=== PATIENT | female | born 1945 | race Caucasian/White ===

== ENCOUNTER → 2017-10-13 09:58 | Outpatient (CLI) | payer OTHER, SELFPAY ==
[2017-10-13 10:38] LABS: Glucose Urine UA Negative (Normal); Nitrite Urine UA Negative (Negative); Occult Blood Urine UA 3+ (Negative); Protein Urine UA Negative (Negative); Urobilinogen Urine UA 0.2 mg/dL (Normal)
[2017-10-13 10:44] LABS: Add Manual Diff / Slide Review NO; Basophils Percent Auto 0.6 % (0-2); Eosinophils Percent Auto 1.7 % (2-4); Hemoglobin 11.5 g/dL (12.0-16.0); Lymphocytes Percent Auto 22.6 % (25-40); Mean Corpuscular HGB Conc 32.9 % (30-36); Mean Corpuscular Hemoglobin 28.6 PG (26-34); Mean Corpuscular Volume 86.7 fL (80-100); Monocytes Percent Auto 7.2 % (3-14); Neutrophils Absolute Auto 6800 /uL (3000-5900); Neutrophils Percent Auto 67.9 % (50-75); Platelet Count 254 X10^3/uL (150-400); Red Blood Cell Count 4.03 X10^6/uL (4.0-5.2); Red Cell Distribution Width 13.1 % (11.6-14.8); White Blood Cell Count 10.1 X10^3/uL (4.5-11.0)
[2017-10-13 10:45] LABS: Bilirubin Urine UA Negative (Negative); Ketones Urine UA Negative (Negative); Leukocyte Esterase Urine UA Negative (Negative)
[2017-10-13 10:46] LABS: Appearance Urine UA Clear; Color Urine UA Yellow
[2017-10-13 10:47] LABS: Culture Indicated Urine Cult Not Indicated; RBC Urine 1-5/HPF (0-5/HPF)
[2017-10-13 10:51] LABS: Alanine Aminotransferase 20 IU/L (9-52); Albumin 4.6 g/dL (3.5-5.0); Albumin Globulin Ratio 1.5 (1.0-2.8); Alkaline Phosphatase 54 U/L (38-126); Aspartate Aminotransferase 22 IU/L (14-36); BUN Creatinine Ratio 26.7 (6-22); Bilirubin Total 0.4 mg/dL (0.2-1.3); Calcium 9.8 mg/dL (8.4-10.2); Estimated Glomerular Filt Rate > 60.0 mL/min (>60); Glucose 130 mg/dL (80-110); HEMOLYSIS < 15 (0-50); Potassium 4.1 mmol/L (3.4-5.1); Sodium 140 mmol/L (137-145); Total Protein 7.6 g/dL (6.3-8.2)
[2017-10-13 10:52] LABS: C-Reactive Protein Quant < 0.5 mg/dL (<1.0)
[2017-10-13 11:18] LABS: Erythrocyte Sedimentation Rate 35 MM/HR (0-20)
== END ==
PROVIDERS: PCP Family Medicine; Visit Provider Family Medicine
DX: M35.3 Polymyalgia rheumatica (principal); K90.0 Celiac disease; R73.9 Hyperglycemia, unspecified; E11.9 Type 2 diabetes mellitus without complications
CPT/HCPCS: 36415; 80053; 81001; 81015; 85025; 85651; 86140

== ENCOUNTER → 2017-11-02 09:58 | Outpatient (CLI) | payer OTHER, SELFPAY ==
[2017-11-02 10:45] LABS: Add Manual Diff / Slide Review NO; Basophils Percent Auto 0.6 % (0-2); Eosinophils Percent Auto 1.8 % (2-4); Hemoglobin 11.4 g/dL (12.0-16.0); Lymphocytes Percent Auto 27.2 % (25-40); Mean Corpuscular HGB Conc 34.4 % (30-36); Mean Corpuscular Hemoglobin 29.2 PG (26-34); Mean Corpuscular Volume 85.1 fL (80-100); Monocytes Percent Auto 7.2 % (3-14); Neutrophils Absolute Auto 4700 /uL (3000-5900); Neutrophils Percent Auto 63.2 % (50-75); Platelet Count 267 X10^3/uL (150-400); Red Blood Cell Count 3.88 X10^6/uL (4.0-5.2); Red Cell Distribution Width 13.3 % (11.6-14.8); White Blood Cell Count 7.5 X10^3/uL (4.5-11.0)
[2017-11-02 10:59] LABS: Erythrocyte Sedimentation Rate 28 MM/HR (0-20)
[2017-11-02 11:01] LABS: Hemoglobin A1C% w Est Avg Glu 6.8 % (4.0-6.0)
[2017-11-02 11:11] LABS: HEMOLYSIS < 15 (0-50); Potassium 4.3 mmol/L (3.4-5.1); Sodium 141 mmol/L (137-145)
[2017-11-02 11:31] LABS: Alanine Aminotransferase 31 IU/L (9-52); Albumin 4.3 g/dL (3.5-5.0); Albumin Globulin Ratio 1.4 (1.0-2.8); Alkaline Phosphatase 65 U/L (38-126); Aspartate Aminotransferase 22 IU/L (14-36); BUN Creatinine Ratio 22.2 (6-22); Bilirubin Total 0.4 mg/dL (0.2-1.3); Calcium 9.6 mg/dL (8.4-10.2); Estimated Glomerular Filt Rate > 60.0 mL/min (>60); Globulin 3.1 g/dL (1.7-4.1); Glucose 116 mg/dL (80-110); Total Protein 7.4 g/dL (6.3-8.2)
[2017-11-02 11:37] LABS: C-Reactive Protein Quant < 0.5 mg/dL (<1.0)
== END ==
PROVIDERS: PCP Family Medicine; Visit Provider Family Medicine
DX: K90.0 Celiac disease (principal); M35.3 Polymyalgia rheumatica; R73.9 Hyperglycemia, unspecified; E11.9 Type 2 diabetes mellitus without complications
CPT/HCPCS: 36415; 80053; 82565; 83036; 84520; 85025; 85651; 86140

== ENCOUNTER → 2018-02-01 10:39 | Outpatient (CLI) | payer OTHER, SELFPAY ==
[2018-02-01 11:37] LABS: Appearance Urine UA CLEAR; Bilirubin Urine UA NEGATIVE (NEGATIVE); Color Urine UA YELLOW; Glucose Urine UA TRACE g/dL (Normal); Ketones Urine UA NEGATIVE (NEGATIVE); Leukocyte Esterase Urine UA 1+ (NEGATIVE); Nitrite Urine UA Negative (Negative); Occult Blood Urine UA 3+ (Negative); Protein Urine UA NEGATIVE (Negative); Specific Gravity Urine UA <=1.005 (1.000-1.035); Urobilinogen Urine UA 0.2 E.U./dL (0.2)
[2018-02-01 11:39] LABS: Bacteria Urine None Seen
[2018-02-01 11:44] LABS: Culture Indicated Urine Specimen Cultured; RBC Urine 5-10/HPF (0-5/HPF); Squamous Epithelial Cell Urine 0-1 /HPF; WBC Urine 10-30/HPF (0-5/HPF)
== END ==
PROVIDERS: PCP Family Medicine; Visit Provider Family Medicine
DX: R30.0 Dysuria (principal)
CPT/HCPCS: 81003; 81015; 87086; 87186

== ENCOUNTER → 2018-02-06 09:11 | Outpatient (CLI) | payer OTHER, SELFPAY ==
[2018-02-06 10:22] LABS: Glucose 118 mg/dL (80-110)
[2018-02-06 10:26] LABS: Hemoglobin A1C% w Est Avg Glu 6.8 % (4.0-6.0)
== END ==
PROVIDERS: PCP Family Medicine; Visit Provider Family Medicine
DX: E11.9 Type 2 diabetes mellitus without complications (principal)
CPT/HCPCS: 36415; 82947; 83036

== ENCOUNTER → 2018-03-23 11:07 | Outpatient (CLI) | payer OTHER, SELFPAY ==
[2018-03-23 11:53] LABS: Appearance Urine UA SL CLOUDY; Bilirubin Urine UA NEGATIVE (NEGATIVE); Color Urine UA YELLOW; Glucose Urine UA TRACE g/dL (Normal); Ketones Urine UA NEGATIVE (NEGATIVE); Leukocyte Esterase Urine UA 2+ (NEGATIVE); Nitrite Urine UA Negative (Negative); Occult Blood Urine UA 3+ (Negative); Protein Urine UA NEGATIVE (Negative); Specific Gravity Urine UA <=1.005 (1.000-1.035); Urobilinogen Urine UA 0.2 E.U./dL (0.2); pH Urine UA 6.5 (4.5-8.0)
[2018-03-23 12:18] LABS: Bacteria Urine Few (2-10); Culture Indicated Urine Specimen Cultured; RBC Urine 1-5/HPF (0-5/HPF); Squamous Epithelial Cell Urine 1-5 /HPF; WBC Urine 10-30/HPF (0-5/HPF)
== END ==
PROVIDERS: PCP Family Medicine; Visit Provider Family Medicine
DX: R30.0 Dysuria (principal)
CPT/HCPCS: 81003; 81015; 87077; 87086; 87186

== ENCOUNTER → 2018-04-09 13:49 | Outpatient (CLI) | payer OTHER, SELFPAY ==
[2018-04-09 14:40] LABS: Appearance Urine UA SL CLOUDY; Bilirubin Urine UA NEGATIVE (NEGATIVE); Color Urine UA YELLOW; Glucose Urine UA NEGATIVE (Normal); Ketones Urine UA NEGATIVE (NEGATIVE); Leukocyte Esterase Urine UA 1+ (NEGATIVE); Nitrite Urine UA POSITIVE (Negative); Occult Blood Urine UA 3+ (Negative); Protein Urine UA NEGATIVE (Negative); Urobilinogen Urine UA 0.2 E.U./dL (0.2)
[2018-04-09 14:49] LABS: RBC Urine 5-10/HPF (0-5/HPF); WBC Urine 30-100/HPF (0-5/HPF)
[2018-04-09 14:50] LABS: Bacteria Urine Many (>30); Culture Indicated Urine Specimen Cultured; Squamous Epithelial Cell Urine 1-5 /HPF
== END ==
PROVIDERS: PCP Family Medicine; Visit Provider Family Medicine
DX: R30.0 Dysuria (principal)
CPT/HCPCS: 81001; 87077; 87086; 87186

== ENCOUNTER → 2018-05-05 14:35 | Outpatient (CLI) | payer OTHER, SELFPAY | PROVIDERS: PCP Family Medicine; Visit Provider Family Medicine | DX: E11.9 Type 2 diabetes mellitus without complications (principal); M35.3 Polymyalgia rheumatica; K90.0 Celiac disease; R73.9 Hyperglycemia, unspecified ==

== ENCOUNTER → 2018-05-07 07:27 | Outpatient (CLI) | payer OTHER, SELFPAY ==
[2018-05-07 07:34] LABS: Bacteria Urine None Seen; RBC Urine None Seen (0-5/HPF); WBC Urine None Seen (0-5/HPF)
[2018-05-07 08:41] LABS: Add Manual Diff / Slide Review NO; Basophils Percent Auto 0.5 % (0-2); Bilirubin Urine UA NEGATIVE (NEGATIVE); Color Urine UA YELLOW; Eosinophils Percent Auto 3.2 % (2-4); Glucose Urine UA NEGATIVE (Normal); Hematocrit 33.8 % (36-46); Ketones Urine UA NEGATIVE (NEGATIVE); Leukocyte Esterase Urine UA NEGATIVE (NEGATIVE); Lymphocytes Percent Auto 31.2 % (25-40); Mean Corpuscular HGB Conc 32.5 % (30-36); Mean Corpuscular Hemoglobin 28.5 PG (26-34); Mean Corpuscular Volume 87.9 fL (80-100); Monocytes Percent Auto 8.3 % (3-14); Neutrophils Absolute Auto 3500 /uL (3000-5900); Neutrophils Percent Auto 56.8 % (50-75); Nitrite Urine UA NEGATIVE (Negative); Occult Blood Urine UA 3+ (Negative); Platelet Count 271 X10^3/uL (150-400); Protein Urine UA NEGATIVE (Negative); Red Blood Cell Count 3.85 X10^6/uL (4.0-5.2); Red Cell Distribution Width 14.5 % (11.6-14.8); Specific Gravity Urine UA 1.015 (1.000-1.035); Urobilinogen Urine UA 0.2 E.U./dL (0.2); White Blood Cell Count 6.1 X10^3/uL (4.5-11.0)
[2018-05-07 08:58] LABS: Alanine Aminotransferase 18 IU/L (9-52); Albumin 4.5 g/dL (3.5-5.0); Albumin Globulin Ratio 1.6 (1.0-2.8); Alkaline Phosphatase 55 U/L (38-126); Aspartate Aminotransferase 22 IU/L (14-36); Bilirubin Total 0.2 mg/dL (0.2-1.3); Blood Urea Nitrogen 27 mg/dL (7-17); Calcium 9.9 mg/dL (8.4-10.2); Carbon Dioxide 27 mmol/L (22-32); Chloride 102 mmol/L (98-107); Estimated Glomerular Filt Rate > 60.0 mL/min (>60); Globulin 2.9 g/dL (1.7-4.1); Glucose 127 mg/dL (80-110); HEMOLYSIS < 15 (0-50); Potassium 4.4 mmol/L (3.4-5.1); Sodium 143 mmol/L (137-145); Total Protein 7.4 g/dL (6.3-8.2)
[2018-05-07 08:59] LABS: C-Reactive Protein Quant < 0.5 mg/dL (<1.0)
[2018-05-07 09:00] LABS: Appearance Urine UA Clear; Granular Casts Urine 0-1/LPF; Squamous Epithelial Cell Urine 1-5 /HPF
[2018-05-07 09:06] LABS: Erythrocyte Sedimentation Rate 22 MM/HR (0-20)
[2018-05-07 09:49] LABS: Hemoglobin A1C% w Est Avg Glu 6.7 % (4.0-6.0)
== END ==
PROVIDERS: PCP Family Medicine; Visit Provider Family Medicine
DX: E11.9 Type 2 diabetes mellitus without complications (principal); M35.3 Polymyalgia rheumatica; K90.0 Celiac disease; R73.9 Hyperglycemia, unspecified
CPT/HCPCS: 36415; 80053; 81001; 82565; 83036; 84520; 85025; 85651; 86140

== ENCOUNTER → 2018-06-28 14:14 | Outpatient (CLI) | payer OTHER, SELFPAY ==
[2018-06-28 15:16] LABS: Bilirubin Urine UA NEGATIVE (NEGATIVE); Color Urine UA YELLOW; Glucose Urine UA NEGATIVE (Negative); Ketones Urine UA NEGATIVE (NEGATIVE); Leukocyte Esterase Urine UA 2+ (NEGATIVE); Nitrite Urine UA NEGATIVE (Negative); Occult Blood Urine UA 2+ (Negative); Protein Urine UA NEGATIVE (Negative); Specific Gravity Urine UA <=1.005 (1.000-1.035); Urobilinogen Urine UA 0.2 E.U./dL (0.2); pH Urine UA 6.5 (4.5-8.0)
[2018-06-28 15:19] LABS: Appearance Urine UA Slightly Cloudy
[2018-06-28 15:29] LABS: Amorphous Sediment Urine 1+; Bacteria Urine Moderate (10-30); Culture Indicated Urine Specimen Cultured; Mucus Urine 1+ (Negative); RBC Urine 1-5/HPF (0-5/HPF); Squamous Epithelial Cell Urine 0-1 /HPF; WBC Urine 30-100/HPF (0-5/HPF)
== END ==
PROVIDERS: PCP Family Medicine; Visit Provider Family Medicine
DX: R30.0 Dysuria (principal)
CPT/HCPCS: 81003; 81015; 87077; 87086; 87186

== ENCOUNTER → 2018-09-07 11:01 | Outpatient (CLI) | payer OTHER, SELFPAY ==
[2018-09-07 13:00] LABS: Appearance Urine UA CLEAR; Bilirubin Urine UA NEGATIVE (NEGATIVE); Color Urine UA YELLOW; Glucose Urine UA TRACE g/dL (Negative); Ketones Urine UA NEGATIVE (NEGATIVE); Leukocyte Esterase Urine UA TRACE (NEGATIVE); Nitrite Urine UA NEGATIVE (Negative); Occult Blood Urine UA 3+ (Negative); Protein Urine UA NEGATIVE (Negative); Specific Gravity Urine UA 1.015 (1.000-1.035); Urobilinogen Urine UA 0.2 E.U./dL (0.2)
[2018-09-07 13:21] LABS: Amorphous Sediment Urine 1+; Bacteria Urine Many (>30); Culture Indicated Urine Specimen Cultured; RBC Urine 1-5/HPF (0-5/HPF); Squamous Epithelial Cell Urine 0-1 /HPF; WBC Urine 5-10/HPF (0-5/HPF)
== END ==
PROVIDERS: PCP Family Medicine; Visit Provider Family Medicine
DX: R30.0 Dysuria (principal)
CPT/HCPCS: 81001; 87077; 87086; 87186

== ENCOUNTER → 2018-10-25 07:00 | Outpatient (CLI) | payer OTHER, SELFPAY ==
[2018-10-25 09:45] LABS: Hemoglobin A1C% w Est Avg Glu 6.5 % (4.0-6.0)
[2018-10-25 11:27] LABS: Creatinine Urine Random 36.9 mg/dL; Microalbumi Creatinin Ratio Ur 16.2 ug/mg CR (<30); Microalbumin Urine Random < 0.6 mg/dL (0-1.6)
== END ==
PROVIDERS: PCP Family Medicine; Visit Provider Family Medicine
DX: E11.9 Type 2 diabetes mellitus without complications (principal)
CPT/HCPCS: 36415; 82043; 82570; 83036

== ENCOUNTER 2018-12-11 21:13 | Emergency (ER) | payer OTHER, SELFPAY ==
[2018-12-11 21:20] VITALS: BP 213/88; PULSE 88; RESP 20; TEMP 36.6; O2SAT 99; BMI 22.4
--- NOTE | 2018-12-11 21:23 | DI.RAD.S_ITS ---
PROCEDURE: XR FOREARM RT 2V INDICATIONS: Fall TECHNIQUE: 2 views of the forearm were acquired. COMPARISON: [facility], CR, XR WRIST RT MIN 3V, 12/11/2018, 21:39. FINDINGS: Bones: No dislocations. No suspicious bony lesions. The forearm evaluation includes visualization of this area, and the straight AP projection shows a morphologic distortion of the scaphoid at approximately the junction of the middle and distal thirds. This same area was included on the dedicated scaphoid a plain film image from the wrist evaluation earlier today and no definite fracture was seen in that area. Regardless, this raises a high degree of concern that a previously hidden fracture is present at that site. Soft tissues: No suspicious soft tissue calcifications or masses. IMPRESSION: The wrist plain films from earlier today showed no fracture at the scaphoid. The current scaphoid visualization shows a highly suspicious appearance of fracture at the junction of the middle and distal thirds of the scaphoid. Due to the significant clinical implications of this finding followup dedicated advanced imaging is recommended. MR scanning provides the most accurate assessment for hidden fractures. Splinting and elective followup may be warranted based on this appearance. Dictated by: Beto Salamanca M.D. on 12/11/2018 at 21:46 Approved by: Beto Salamanca M.D. on 12/11/2018 at 21:50
--- NOTE | 2018-12-11 21:24 | DI.RAD.S_ITS ---
PROCEDURE: XR WRIST RT MIN 3V INDICATIONS: Fall TECHNIQUE: 4 views of the wrist were acquired. COMPARISON: [facility], CR, XR FOREARM RT 2V, 12/11/2018, 21:36. FINDINGS: Bones: No fractures or dislocations, however the forearm plain film imaging shows a finding highly suggestive of scaphoid fracture at the junction the middle and distal thirds. No suspicious bony lesions. Scaphoid view: A normal appearing scaphoid single view is present. However, please refer to the dedicated forearm plain films that include straight AP projection showing what appears to be a fracture at the scaphoid. Soft tissues: No suspicious soft tissue calcifications. IMPRESSION: Overall there is a high suspicion for scaphoid fracture from the forearm plain films but no suspicion for scaphoid fracture from the dedicated scaphoid plain films from this study. If there is no tenderness at the snuffbox area of the wrist are been the suspected scaphoid fracture may be a false positive. Overall I would recommend obtaining either delayed plain film followup or advanced imaging such as MR or CT scanning. Please note that MR scanning provides the most accurate assessment for presence or absence of hidden fractures. Dictated by: Beto Salamanca M.D. on 12/11/2018 at 21:51 Approved by: Beto Salamanca M.D. on 12/11/2018 at 21:56
--- NOTE | 2018-12-11 21:30 | ED_ITS ---
HPI - Fall General Chief Complaint: Fall Stated Complaint: GLF, right hand injury, left eblow, knees Time Seen by Provider: 12/11/18 21:15 Source: patient Mode of arrival: ambulatory Limitations: no limitations History of Present Illness HPI Narrative: Patient is a 73-year-old female here for evaluation of injuries sustained while she was at a family event and tripped and fell forward landing on her outstretched right hand. Has had pain in this area since the event. Also sustained a skin abrasion to her left elbow. Also is complaining of bilateral knee pain. Patient is not on anticoagulation. Related Data Previous Rx's Medication Instructions Recorded Glucose: Test Strips str BIDAC #50 04/24/16 folic acid 3 mg PO QDAY #90 tab 03/01/18 lisinopril 20 mg tablet 20 mg PO Q DAY #90 tab 05/10/18 metformin 1,000 mg tablet 1,000 mg PO BIDCC #180 tab 05/10/18 simvastatin 40 mg tablet 40 mg PO HS #90 tab 05/10/18 nitrofurantoin macrocrystal 50 mg 50 mg PO BEDTIME #90 cap 09/09/18 capsule triamcinolone acetonide 0.1 % See Rx Instructions TOP BID #15 10/25/18 topical cream gram Allergies Allergy/AdvReac Type Severity Reaction Status Date / Time gabapentin [GABAPENTIN] Allergy Severe TONGUE Verified 12/11/18 21:29 SWELLING AND DIFFICULTY SWALLOWING erythromycin base Allergy Mild violent Verified 12/11/18 21:29 [ERYTHROMYCIN BASE] stomach pain hydrocodone [HYDROCODONE] Allergy Mild hives Verified 12/11/18 21:29 Penicillins [PENICILLINS] Allergy Mild hives Verified 12/11/18 21:29 prednisone [PREDNISONE] Allergy Mild temporary Verified 12/11/18 21:29 blindness and hives wheat [WHEAT] Allergy Mild joint pain Verified 12/11/18 21:29 and arthritis ciprofloxacin [From Cipro] AdvReac tendon Verified 12/11/18 21:29 issues Review of Systems Constitutional Denies fever(s) and Denies headache(s) ENT Ears, Nose, Mouth, and Throat: Denies headache(s) and Denies disequilibrium Cardiovascular Denies chest pain and Denies dyspnea Respiratory Denies dyspnea Gastrointestinal Gastrointestinal: Denies abdominal pain Genitourinary Denies dysuria Musculoskeletal Denies abnormal gait Comments: Right wrist pain, bilateral knee pain Integumentary/Breasts Comments: Skin tear to left elbow Neurologic Denies abnormal gait, Denies behavioral changes, Denies headache(s), Denies pare sthesias and Denies disequilibrium Psychiatric Denies behavioral changes Hematologic/Lymphatic Denies easy bleeding and Denies easy bruising Exam Initial Vital Signs Initial Vital Signs: Vital Signs Temperature 97.9 F 12/11/18 21:20 Pulse Rate 88 12/11/18 21:20 Respiratory Rate 20 12/11/18 21:20 Blood Pressure 213/88 H 12/11/18 21:20 Pulse Oximetry 99 12/11/18 21:20 Const General: cooperative, comfortable, well developed, well groomed and No acute distress Orientation: alert, awake and oriented x3 HENMT Head: normal to inspection and normocephalic Resp Effort & Inspection: normal respiratory effort Auscultation: clear to auscultation bilaterally Cardio Rate: regular rate Rhythm: regular rhythm Pulses: radial pulses present on the right GI Inspection: non-distended Palpation: soft Skin Other: Patient with a small skin tear to the ulnar aspect of the left elbow Neuro General: alert and awake Cognition: normal cognition Speech: speech normal Motor: muscle tone normal throughout Sensory Exam: no sensory deficits noted Extrem Other: Right shoulder unremarkable. Right elbow unremarkable. Patient with tenderness to palpation along the radial aspect of the right wrist. Does not have tenderness to palpation particularly over the snuffbox area of the right hand however does have quite a bit of tenderness over the palm of the hand. Patient with pain with supination. Able to pronate without problems. Patient able to ambulate without problems. Full range of motion with bilateral knees. Psych Appearance: grossly normal and well kempt [facility] Medical History Fibromyalgia, primary (Chronic) Controlled diabetes mellitus without complication (Chronic 04/24/16) Polymyalgia rheumatica (Chronic 04/24/16) Impingement syndrome of left shoulder (Chronic 04/24/16) Celiac disease (Chronic 04/24/16) Type 2 diabetes mellitus without complication, without long-term current use of insulin (Chronic 09/11/16) Generalized osteoarthritis (Chronic 06/22/17) Arthritis (Chronic) Asthma (Chronic ~1971) Fractures (Chronic ~2009) Hypertension (Chronic ~1989) Seasonal allergies (Chronic ~1953) Shoulder pain (Chronic ~2015) Skin cancer (Chronic ~2015) Wheat allergy (Chronic) Chicken pox (Resolved ~1949) Measles (Resolved ~1949) Migraines (Resolved) Mumps (Resolved ~1949) Rubella (Resolved) Social History Smoking Status: Never smoker Procedures Orthopedic Splinting/Casting Injury #1: Side: right Upper Extremity Injury Location: wrist Upper Extremity Immobilizer: thumb spica Post splinting neuro exam: no change Post splinting vascular exam: no change Placed by: Nursing Course Orders Ordered: ED Orders 12/11/18 21:23 XR forearm RT 2V Stat 12/11/18 21:24 XR wrist RT min 3V Stat Vital Signs - 8 hr 12/11/18 21:20 12/11/18 22:18 Temperature 97.9 F Pulse Rate 88 78 Respiratory Rate 20 16 Blood Pressure 213/88 H Blood Pressure [Left Arm] 156/84 H Pulse Oximetry 99 100 MDM - Fall Imaging Data X-ray forearm: Radiologist's impression: [address] [address] XRay Report Signed Patient: Jacque Boswell SMR#: [id number] : 5Acct:[id number] Age/Sex: 73 / FDate of Service: 12/11/18 Loc: ED Accession Number: [id number] Procedure: XR forearm RT 2V Ordering Provider: Terrence Duran D.O. PROCEDURE: XR FOREARM RT 2V INDICATIONS: Fall TECHNIQUE: 2 views of the forearm were acquired. COMPARISON: [facility], , XR WRIST RT MIN 3V, 12/11/2018, 21:39. FINDINGS: Bones: No dislocations. No suspicious bony lesions. The forearm evaluation includes visualization of this area, and the straight AP projection shows a morphologic distortion of the scaphoid at approximately the junction of the middle and distal thirds. This same area was included on the dedicated scaphoid a plain film image from the wrist evaluation earlier today and no definite fracture was seen in that area. Regardless, this raises a high degree of concern that a previously hidden fracture is present at that site. Soft tissues: No suspicious soft tissue calcifications or masses. IMPRESSION: The wrist plain films from earlier today showed no fracture at the scaphoid. The current scaphoid visualization shows a highly suspicious appearance of fracture at the junction of the middle and distal thirds of the scaphoid. Due to the significant clinical implications of this finding followup dedicated advanced imaging is recommended. MR scanning provides the most accurate assessment for hidden fractures. Splinting and elective followup may be warranted based on this appearance. Dictated by: Beto Salamanca M.D. on 12/11/2018 at 21:46 Approved by: Beto Salamanca M.D. on 12/11/2018 at 21:50 X-ray wrist: Radiologist's impression: [address] [address] XRay Report Signed Patient: Jacque Boswell [facility]#: [id number] : 5Acct:[id number] Age/Sex: 73 / FDate of Service: 12/11/18 Loc: ED Accession Number: [id number] Procedure: XR wrist RT min 3V Ordering Provider: Terrence Duran D.O. PROCEDURE: XR WRIST RT MIN 3V INDICATIONS: Fall TECHNIQUE: 4 views of the wrist were acquired. COMPARISON: [facility], , XR FOREARM RT 2V, 12/11/2018, 21:36. FINDINGS: Bones: No fractures or dislocations, however the forearm plain film imaging shows a finding highly suggestive of scaphoid fracture at the junction the middle and distal thirds. No suspicious bony lesions. Scaphoid view: A normal appearing scaphoid single view is present. However, please refer to the dedicated forearm plain films that include straight AP projection showing what appears to be a fracture at the scaphoid. Soft tissues: No suspicious soft tissue calcifications. IMPRESSION: Overall there is a high suspicion for scaphoid fracture from the forearm plain films but no suspicion for scaphoid fracture from the dedicated scaphoid plain films from this study. If there is no tenderness at the snuffbox area of the wrist are been the suspected scaphoid fracture may be a false positive. Overall I would recommend obtaining either delayed plain film followup or advanced imaging such as MR or CT scanning. Please note that MR scanning provides the most accurate assessment for presence or absence of hidden fractures. Dictated by: Beto Salamanca M.D. on 12/11/2018 at 21:51 Approved by: Beto Salamanca M.D. on 12/11/2018 at 21:56 MDM Narrative Medical decision making narrative: Patient x-rays concerning for potential scaphoid fracture. She is not particularly tender over the snuffbox area but does have quite a bit of tenderness over the palmar aspect of the right thumb. She was placed in a thumb spica splint and was instructed to follow up with her primary doctor in approximately 1 week for re-evaluation. Skin tear on her left elbow was covered with a bandage. No other interventions required here in the emergency department. No interventions required with her knees. This does appear to be a mechanical fall. Patient given return precautions and follow-up instructions. She expressed understanding and agreement with plan. Discharge Plan Departure Patient Disposition: Home Clinical Impression: Abrasion of skin Injury of wrist, right Qualifiers: Encounter type: initial encounter Qualified Code(s): S69.91XA - Unspecified injury of right wrist, hand and finger(s), initial encounter Discharge Date/Time: 12/11/18 22:45 Interventions: ED Discharge Assessment Last Done: 12/11/18 22:45 Instructions: How to Take Care of Your Splint Activity Restrictions/Additional Instructions: On Thursday contact your primary care provider for follow-up at the end of next week for re-evaluation of your right wrist. Keep the splint on and keep it clean and keep it dry. The skin tear on her left elbow will heal on its own. You can use soap and water like normal. Cover it with a bandage. Return to the emergency department for any new or worsening symptoms Prescriptions: No Action triamcinolone acetonide 0.1 % cream See Rx Instructions TOP BID Qty: 15 RF: 0 Glucose: Test Strips BIDAC Qty: 50 RF: 5 folic acid 1 mg tablet 3 mg PO QDAY Qty: 90 RF: 11 nitrofurantoin macrocrystal 50 mg capsule 50 mg PO BEDTIME Qty: 90 RF: 0 lisinopril 20 mg tablet 20 mg PO Q DAY Qty: 90 RF: 3 metformin 1,000 mg tablet 1,000 mg PO BIDCC Qty: 180 RF: 3 simvastatin 40 mg tablet 40 mg PO HS Qty: 90 RF: 3 Referrals: Brian Quiñones MD [Primary Care Provider] -
[2018-12-11 22:18] VITALS: BP 156/84; PULSE 78; RESP 16; O2SAT 100
== END 2018-12-11 22:45 | disposition home or self-care (01) ==
PROVIDERS: Emergency Provider Emergency Medicine; PCP Family Medicine
DX: S69.91XA Unspecified injury of right wrist, hand and finger(s), initial encounter (principal); W01.0XXA Fall on same level from slipping, tripping and stumbling without subsequent striking against object, initial encounter
CPT/HCPCS: 29125; 73090; 73110; 99283

== ENCOUNTER → 2018-12-18 14:42 | Outpatient (CLI) | payer OTHER, SELFPAY ==
--- NOTE | 2018-12-18 14:46 | DI.MRI.S_ITS ---
PROCEDURE: MR WRIST RT WO CON INDICATIONS: possible scaphoid fracture TECHNIQUE: Noncontrast coronal proton density fast spin echo and T2 fast spin echo with fat saturation; coronal 3-D gradient echo, axial T1 spin echo and T2 fast spin echo with fat saturation, sagittal T1 spin echo through the wrist. COMPARISON: [facility], CR, XR WRIST RT MIN 3V, 12/11/2018, 21:39. FINDINGS: Image quality: Excellent. Bones and cartilage: The carpal bones are normally aligned. No bone marrow contusions or fractures. No evidence for avascular necrosis. Mild radiocarpal joint space narrowing is seen. Mild osteoarthritic changes at first CMC joint is also noted. Carpal ligaments: The scapholunate and lunotriquetral ligaments appear intact. In the absence of intra-articular contrast, the extrinsic carpal ligaments are not well identified. On sagittal images, the pisohamate ligament appears intact. Triangular fibrocartilage complex: The triangular fibrocartilage appears intact. The adjacent meniscal homolog appears normal in the absence of intra-articular contrast. The extensor carpi ulnaris tendon is normal in location and morphology. Tendons and soft tissues: The carpal tunnel structures appear normal, including the median nerve. The ulnar nerve appears normal within Guyon's canal. All six extensor tendon compartments demonstrate normal morphology, without pathologic tendon sheath fluid. No soft tissue ganglion cysts. IMPRESSION: 1. No evidence of wrist fracture or dislocation. Specifically, the scaphoid is intact with no evidence of scaphoid fracture. 2. Wrist tendons and ligaments are grossly intact. No gross focal trigonal fibrocartilage tear. 3. Mild osteoarthritic changes along radial aspect of right wrist. Dictated by: Jeevan Patel M.D. on 12/20/2018 at 11:06 Approved by: Jeevan Patel M.D. on 12/20/2018 at 11:19
== END ==
PROVIDERS: PCP Family Medicine; Visit Provider Family Medicine
DX: S69.91XA Unspecified injury of right wrist, hand and finger(s), initial encounter (principal); M18.11 Unilateral primary osteoarthritis of first carpometacarpal joint, right hand
CPT/HCPCS: 73221

== ENCOUNTER → 2019-01-10 10:07 | Outpatient (CLI) | payer OTHER, SELFPAY | PROVIDERS: PCP Family Medicine; Visit Provider Family Medicine | DX: M81.0 Age-related osteoporosis without current pathological fracture (principal); M85.89 Other specified disorders of bone density and structure, multiple sites | CPT/HCPCS: 77080 ==

== ENCOUNTER → 2019-01-24 13:43 | Outpatient (CLI) | payer OTHER, SELFPAY ==
[2019-01-24 14:27] LABS: Appearance Urine UA SL CLOUDY; Bilirubin Urine UA NEGATIVE (NEGATIVE); Color Urine UA YELLOW; Glucose Urine UA TRACE g/dL (Negative); Ketones Urine UA NEGATIVE (NEGATIVE); Leukocyte Esterase Urine UA 2+ (NEGATIVE); Nitrite Urine UA NEGATIVE (Negative); Occult Blood Urine UA 3+ (Negative); Protein Urine UA NEGATIVE (Negative); Specific Gravity Urine UA <=1.005 (1.000-1.035); Urobilinogen Urine UA 0.2 E.U./dL (0.2)
[2019-01-24 14:43] LABS: Bacteria Urine Many (>30); Culture Indicated Urine Specimen Cultured; RBC Urine >100/HPF (0-5/HPF); Squamous Epithelial Cell Urine 0-1 /HPF (0-5/HPF); WBC Urine 30-100/HPF (0-5/HPF)
== END ==
PROVIDERS: PCP Family Medicine; Visit Provider Family Medicine
DX: R30.0 Dysuria (principal)
CPT/HCPCS: 81003; 81015; 87077; 87086; 87186

== ENCOUNTER → 2019-04-21 10:22 | Outpatient (CLI) | payer OTHER, SELFPAY ==
[2019-04-21 11:41] LABS: Hemoglobin A1C% w Est Avg Glu 7.1 % (4.0-6.0)
[2019-04-21 11:54] LABS: Microalbumin Urine Random 0.9 mg/dL (0-1.6)
[2019-04-21 12:29] LABS: Microalbumi Creatinin Ratio Ur 8.9 ug/mg CR (<30)
== END ==
PROVIDERS: PCP Family Medicine; Visit Provider Family Medicine
DX: E11.9 Type 2 diabetes mellitus without complications (principal)
CPT/HCPCS: 36415; 82043; 82570; 83036

== ENCOUNTER → 2019-05-18 15:25 | Outpatient (CLI) | payer OTHER, SELFPAY ==
[2019-05-18 15:41] LABS: Appearance Urine UA CLOUDY; Bilirubin Urine UA NEGATIVE (NEGATIVE); Color Urine UA YELLOW; Glucose Urine UA TRACE g/dL (Negative); Ketones Urine UA NEGATIVE (NEGATIVE); Leukocyte Esterase Urine UA 2+ (NEGATIVE); Nitrite Urine UA NEGATIVE (Negative); Occult Blood Urine UA 3+ (Negative); Protein Urine UA NEGATIVE (Negative); Urobilinogen Urine UA 0.2 E.U./dL (0.2)
[2019-05-18 15:49] LABS: Bacteria Urine Many (>30); Culture Indicated Urine Specimen Cultured; RBC Urine 10-30/HPF (0-5/HPF); WBC Urine 10-30/HPF (0-5/HPF)
== END ==
PROVIDERS: PCP Family Medicine; Visit Provider Family Medicine
DX: R30.0 Dysuria (principal)
CPT/HCPCS: 81003; 81015; 87077; 87086; 87186

== ENCOUNTER → 2019-07-01 15:51 | Outpatient (CLI) | payer OTHER, SELFPAY | PROVIDERS: PCP Family Medicine; Visit Provider Registered Nurse | DX: N39.0 Urinary tract infection, site not specified (principal) | CPT/HCPCS: 87077; 87086; 87186 ==

== ENCOUNTER → 2019-07-25 12:16 | Outpatient (CLI) | payer OTHER, SELFPAY ==
[2019-07-25 14:01] LABS: Hemoglobin A1C% w Est Avg Glu 7.6 % (4.0-6.0)
== END ==
PROVIDERS: PCP Family Medicine; Referring Provider Family Medicine; Visit Provider Family Medicine
DX: E11.9 Type 2 diabetes mellitus without complications (principal)
CPT/HCPCS: 36415; 83036

== ENCOUNTER → 2019-10-24 15:46 | Outpatient (CLI) | payer OTHER, SELFPAY ==
[2019-10-24 16:53] LABS: Add Manual Diff / Slide Review NO; Basophils Absolute Auto 0 /uL (0-100); Basophils Percent Auto 0.8 % (0-2); Eosinophils Absolute Auto 100 /uL (0-450); Eosinophils Percent Auto 2.4 % (2-4); Hematocrit 31.7 % (36-46); Hemoglobin 10.7 g/dL (12.0-16.0); Lymphocytes Absolute Auto 2000 /uL (1100-4500); Mean Corpuscular HGB Conc 33.8 % (30-36); Mean Corpuscular Hemoglobin 29.6 PG (26-34); Mean Corpuscular Volume 87.5 fL (80-100); Monocytes Absolute Auto 400 /uL (0-900); Monocytes Percent Auto 7.3 % (3-14); Neutrophils Absolute Auto 3300 /uL (1500-7000); Neutrophils Percent Auto 56.5 % (50-75); Platelet Count 221 X10^3/uL (150-400); Red Blood Cell Count 3.62 X10^6/uL (4.0-5.2); Red Cell Distribution Width 14.7 % (11.6-14.8); White Blood Cell Count 5.9 X10^3/uL (4.5-11.0)
[2019-10-24 17:07] LABS: Hemoglobin A1C% w Est Avg Glu 7.1 % (4.0-6.0)
[2019-10-24 17:17] LABS: Alanine Aminotransferase 10 IU/L (<35); Albumin 4.5 g/dL (3.5-5.0); Albumin Globulin Ratio 1.7 (1.0-2.8); Alkaline Phosphatase 50 U/L (38-126); Aspartate Aminotransferase 18 IU/L (14-36); BUN Creatinine Ratio 19.3 (6-22); Bilirubin Total 0.3 mg/dL (0.2-1.3); Blood Urea Nitrogen 26 mg/dL (7-17); Carbon Dioxide 22 mmol/L (22-32); Chloride 104 mmol/L (98-107); Estimated Glomerular Filt Rate 38.3 mL/min (>60); Globulin 2.6 g/dL (1.7-4.1); Glucose 106 mg/dL (80-110); HEMOLYSIS < 15 (0-50); Potassium 4.4 mmol/L (3.4-5.1); Sodium 138 mmol/L (137-145); Total Protein 7.1 g/dL (6.3-8.2)
[2019-10-24 17:50] LABS: TSH w/ Reflex to FT4 1.54 uIU/mL (0.47-4.68)
[2019-10-24 18:10] LABS: Vitamin B12 > 1000 pg/mL (239-931)
[2019-10-24 18:30] LABS: Creatinine Urine Random 90.2 mg/dL
[2019-10-24 18:38] LABS: Microalbumi Creatinin Ratio Ur 18.8 ug/mg CR (<30); Microalbumin Urine Random 1.7 mg/dL (0-1.6)
== END ==
PROVIDERS: PCP Family Medicine; Referring Provider Family Medicine; Visit Provider Family Medicine
DX: E78.2 Mixed hyperlipidemia (principal); I10 Essential (primary) hypertension; K90.0 Celiac disease; M35.3 Polymyalgia rheumatica
CPT/HCPCS: 36415; 80053; 82043; 82570; 82607; 83036; 84443; 85025

== ENCOUNTER → 2019-10-25 09:29 | Outpatient (CLI) | payer OTHER, SELFPAY ==
--- NOTE | 2019-10-25 09:32 | DI.RAD.S_ITS ---
PROCEDURE: XR THORACIC SPINE 3V INDICATIONS: thoracic back pain r/o compression TECHNIQUE: A 3 views of the thoracic spine were acquired. COMPARISON: None. FINDINGS: Bones: No fractures or dislocations. No suspicious bony lesions. 12 pairs of ribs are noted, and appear intact where visualized. There is relatively mild degenerative disc disease along the thoracic spine without subluxation. No definite spinal or foraminal stenosis is suspected based on plain film imaging alone. Soft tissues: No paravertebral stripe thickening. IMPRESSION: Mild degenerative disc disease, no trauma found. Dictated by: Beto Salamanca M.D. on 10/25/2019 at 10:34 Approved by: Beto Salamanca M.D. on 10/25/2019 at 10:35
== END ==
PROVIDERS: PCP Family Medicine; Referring Provider Family Medicine; Visit Provider Family Medicine
DX: M51.34 Other intervertebral disc degeneration, thoracic region (principal)
CPT/HCPCS: 72072

== ENCOUNTER → 2020-05-08 16:39 | Outpatient (CLI) | payer OTHER, SELFPAY ==
[2020-05-08 17:10] LABS: Appearance Urine UA CLEAR; Bilirubin Urine UA NEGATIVE (NEGATIVE); Color Urine UA YELLOW; Glucose Urine UA NEGATIVE (Negative); Ketones Urine UA NEGATIVE (NEGATIVE); Leukocyte Esterase Urine UA 3+ (NEGATIVE); Nitrite Urine UA NEGATIVE (Negative); Occult Blood Urine UA 3+ (Negative); Protein Urine UA TRACE (Negative); Urobilinogen Urine UA 0.2 E.U./dL (0.2)
[2020-05-08 17:29] LABS: Bacteria Urine Occasional (0-1); Culture Indicated Urine Specimen Cultured; RBC Urine 5-10/HPF (0-5/HPF); Squamous Epithelial Cell Urine 1-5 /HPF (0-5/HPF); Transitional Epi Cells Urine 5-10/HPF (0-5/HPF); WBC Urine 30-100/HPF (0-5/HPF)
== END ==
PROVIDERS: PCP Family Medicine; Referring Provider Family Medicine; Visit Provider Family Medicine
DX: R30.0 Dysuria (principal)
CPT/HCPCS: 81003; 81015; 87077; 87086; 87147

== ENCOUNTER → 2020-06-14 08:21 | Outpatient (CLI) | payer OTHER, SELFPAY | PROVIDERS: PCP Family Medicine; Visit Provider Family Medicine | DX: R30.0 Dysuria (principal) | CPT/HCPCS: 87077; 87086; 87186 ==

== ENCOUNTER → 2020-06-25 12:51 | Outpatient (CLI) | payer OTHER, SELFPAY ==
--- NOTE | 2020-06-25 13:06 | DI.CT.S_ITS ---
PROCEDURE: CT KIDNEY URETER BLADDER (KUB) INDICATIONS: Kidney stone TECHNIQUE: Noncontrast 5 mm thick sections acquired from the diaphragms to the symphysis. 5 mm thick coronal and sagittal reformats were then performed. For radiation dose reduction, the following was used: automated exposure control, adjustment of mA and/or kV according to patient size. COMPARISON: None. FINDINGS: Image quality: Excellent. Lung bases: Lung bases are clear. Heart size is normal. Urinary system: Both kidneys are normal in size. No kidney stones. No hydronephrosis or perinephric fat stranding. Both ureters appear non-dilated throughout their expected courses. Bladder wall thickness is normal; no calcified bladder stones. Other solid organs: Liver is normal in size. Gallbladder is surgically absent. Pancreas is normal in contours. Spleen is normal in size. 2.4 centimeter right adrenal nodule noted which has density measurements of -16 Hounsfield units compatible with benign adenoma. Peritoneum and bowel: Unenhanced bowel loops demonstrate normal wall thickness and caliber. No free fluid or air. The appendix is not definitely visualized, however no free fluid or inflammatory changes are noted adjacent to the cecum. Nodes and vessels: No retroperitoneal or mesenteric adenopathy by size criteria. Aorta and inferior vena cava are normal in caliber. Scattered atherosclerotic calcifications involving the abdominal and pelvic vasculature. Abdominal wall: No ventral hernias. Pelvis: No free pelvic fluid. No inguinal hernias or adenopathy. Bones: No suspicious bony lesions. No vertebral body compression fractures. Spine degenerative disc disease and facet arthropathy. IMPRESSION: 1. No renal stone or hydronephrosis. 2. No free fluid or free air. 3. No dilated loops of bowel. 4. 2.4 centimeter right adrenal adenoma. 5. Status post cholecystectomy. Dictated by: Deb Redman MD, PhD on 06/25/2020 at 13:26 Approved by: Deb Redman MD, PhD on 06/25/2020 at 13:35
== END ==
PROVIDERS: PCP Family Medicine; Referring Provider Specialist; Visit Provider Specialist
DX: D35.01 Benign neoplasm of right adrenal gland (principal); N20.1 Calculus of ureter; N39.0 Urinary tract infection, site not specified; Z90.49 Acquired absence of other specified parts of digestive tract
CPT/HCPCS: 74176

== ENCOUNTER → 2020-07-06 10:22 | Outpatient (CLI) | payer OTHER, SELFPAY ==
[2020-07-06 11:01] LABS: Add Manual Diff / Slide Review NO; Basophils Absolute Auto 0 /uL (0-100); Basophils Percent Auto 0.8 % (0-2); Eosinophils Absolute Auto 100 /uL (0-450); Eosinophils Percent Auto 2.4 % (2-4); Hemoglobin 11.1 g/dL (12.0-16.0); Lymphocytes Absolute Auto 2000 /uL (1100-4500); Lymphocytes Percent Auto 35.4 % (25-40); Mean Corpuscular HGB Conc 32.5 % (30-36); Mean Corpuscular Hemoglobin 28.5 PG (26-34); Mean Corpuscular Volume 87.7 fL (80-100); Monocytes Absolute Auto 400 /uL (0-900); Monocytes Percent Auto 7.4 % (3-14); Neutrophils Absolute Auto 3100 /uL (1500-7000); Platelet Count 230 X10^3/uL (150-400); Red Blood Cell Count 3.88 X10^6/uL (4.0-5.2); Red Cell Distribution Width 13.7 % (11.6-14.8); White Blood Cell Count 5.8 X10^3/uL (4.5-11.0)
[2020-07-06 11:23] LABS: Alanine Aminotransferase 11 IU/L (<35); Albumin 4.4 g/dL (3.5-5.0); Albumin Globulin Ratio 1.6 (1.0-2.8); Alkaline Phosphatase 50 U/L (38-126); Aspartate Aminotransferase 22 IU/L (14-36); BUN Creatinine Ratio 23.2 (6-22); Bilirubin Total 0.3 mg/dL (0.2-1.3); Blood Urea Nitrogen 22 mg/dL (7-17); Calcium 9.5 mg/dL (8.4-10.2); Carbon Dioxide 32 mmol/L (22-32); Chloride 103 mmol/L (98-107); Cholesterol 159 mg/dL (140-199); Estimated Glomerular Filt Rate 57.3 mL/min (>60); Globulin 2.8 g/dL (1.7-4.1); Glucose 114 mg/dL (80-110); HDL Cholesterol 55 mg/dL (40-60); HEMOLYSIS < 15 (0-50); LDL Cholesterol Calculated 85 mg/dL (<100); Potassium 4.2 mmol/L (3.4-5.1); Sodium 139 mmol/L (137-145); Total Protein 7.2 g/dL (6.3-8.2); Triglycerides 95 mg/dL (35-150)
[2020-07-06 11:59] LABS: Hemoglobin A1C% w Est Avg Glu 7.3 % (4.0-6.0)
[2020-07-06 12:24] LABS: Thyroid Stimulating Hormone 1.61 uIU/mL (0.47-4.68)
== END ==
PROVIDERS: PCP Family Medicine; Referring Provider Family Medicine; Visit Provider Family Medicine
DX: E11.9 Type 2 diabetes mellitus without complications (principal); I10 Essential (primary) hypertension; E78.2 Mixed hyperlipidemia
CPT/HCPCS: 36415; 80053; 80061; 83036; 84443; 85025

== ENCOUNTER → 2020-08-23 14:50 | Outpatient (CLI) | payer OTHER, SELFPAY ==
[2020-08-23 15:27] LABS: Appearance Urine UA SL CLOUDY; Bilirubin Urine UA NEGATIVE (NEGATIVE); Color Urine UA YELLOW; Glucose Urine UA NEGATIVE (Negative); Ketones Urine UA NEGATIVE (NEGATIVE); Leukocyte Esterase Urine UA 2+ (NEGATIVE); Nitrite Urine UA NEGATIVE (Negative); Occult Blood Urine UA 3+ (Negative); Protein Urine UA NEGATIVE (Negative); Specific Gravity Urine UA 1.015 (1.000-1.035); Urobilinogen Urine UA 0.2 E.U./dL (0.2)
[2020-08-23 15:44] LABS: RBC Urine 1-5/HPF (0-5/HPF); pH Urine UA 5.5 (4.5-8.0)
[2020-08-23 15:45] LABS: Amorphous Sediment Urine 1+; Bacteria Urine Many (>30); Culture Indicated Urine Specimen Cultured; Mucus Urine 1+ (Negative); Squamous Epithelial Cell Urine 1-5 /HPF (0-5/HPF); WBC Urine 30-100/HPF (0-5/HPF)
== END ==
PROVIDERS: PCP Family Medicine; Referring Provider Specialist; Visit Provider Specialist
DX: N39.0 Urinary tract infection, site not specified (principal)
CPT/HCPCS: 81003; 81015; 87077; 87086; 87186